=== PATIENT | male | born 1990 | race Caucasian/White ===

== ENCOUNTER 2016-10-13 10:55 | Emergency (ER) | payer BC, OTHER ==
[2016-10-13] MEDS ORDERED: Ketorolac 60 MG/2 ML SDV IM ONE (11:42)
[2016-10-13] MEDS ORDERED: Acetaminophen 325 MG Tab PO ONE (11:42)
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
[2016-10-13 12:22] VITALS: BP 121/75
== END 2016-10-13 12:20 | disposition home or self-care (01) ==
LOC: JD.ED 10:55
DX: S33.9XXA Sprain of unspecified parts of lumbar spine and pelvis, initial encounter (principal); Z98.890 Other specified postprocedural states; X50.1XXA Overexertion from prolonged static or awkward postures, initial encounter
CPT/HCPCS: 99283; A9270; J1885